=== PATIENT | female | born 1980 | race Caucasian/White ===

== ENCOUNTER 2018-01-28 11:57 | Inpatient (IN) | payer OTHER ==
[~2018-01-28] VITALS: Ht 185.4 cm; Wt 125.9 kg
--- NOTE | ~2018-01-28 | EKG ---
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
--- NOTE | ~2018-01-28 | CATHLAB ---
[facility] [place] [address] INVASIVE PROCEDURE REPORT Name: ROBYN PROCTOR Room #: 218-P ADM IN M.R.#: [id number] Admission: 01/28/18 Attend Phys: Chino Shah MD Discharge: Date of : 84 Date of Service: 01/28/18 1335 Report #: [id number] THIS REPORT FOR: //name// APPROVED REPORT Study performed: 01/28/2018 11:10:16 Patient Details Patient Status: ED Room #: The patient is a 37 year-old female Event Personnel Aidan Coates Doughnut Icer Machine, Ghada Velasquez RN RN, Viji Abdi Sandifer, David Monitor Procedures Performed Left Heart Cath w/or w/o Coronaries 2503157 C BMS Revasc AMI Total/Sub Single RCA 9815718 BMREVAMISG Indication STEMI (>6 hrs to = 12 hrs), Dyspnea, Chest pain Risk Factors HypercholesterolemiaPhysical Activity, Tobacco History () Procedure Narrative The Right Groin^ was infiltrated with 1% Lidocaine subcutaneous anesthesia. A PINNACLE 6FR Sheath #[id number] sheath was inserted into the RFA^. Coronary angiography was performed using coronary diagnostic catheters. The right coronary system was accessed and visualized with a 3DRC catheter. The left coronary system was accessed and visualized with a JL4 catheter. The left ventricle was accessed and visualized with a PIGTAIL catheter. Left ventricular/Aortic Valve gradient assessed via catheter pullback. Left ventriculogram was performed in 30 degree projection. Closure device was deployed with a 6 Fr MYNXGRIP 6/7F #[id number]. There was no hematoma. Intraoperative Conscious Sedation Sedation start time: 11.12 Case end Time: 12.04 Fentanyl 25 mcg Fluoro Time: 14.16 minutes Dose: DAP 10158 cGycm2 2430 mGy [facility] [place] [address] INVASIVE PROCEDURE REPORT Name: ROBYN PROCTOR Room #: 218-P [facility] IN M.R.#: [id number] Admission: 01/28/18 Attend Phys: Chino Shah MD Discharge: Date of : 84 Date of Service: 01/28/18 1335 Report #: [id number] Contrast Type and Amount: Visipaque 260 ml Coronary Angiography The patient's coronary anatomy is right dominant. Diagnostic Cath Left Main Patent vessel, with no flow-limiting lesions. LAD Moderate size caliber vessel, traveling down the anterior wall and wrapping around the apex. There is minimal plaquing in the proximal segment. Diagonal 1 Patent vessel, with no flow-limiting lesions. Circumflex Patent vessel, with no flow-limiting lesions. OM1 Patent vessel, with no flow-limiting lesions. OM2 Patent vessel, with no flow-limiting lesions. Right Coronary Dominant vessel with a total occlusion in the proximal segment. Left Ventriculography The left ventricle is normal in size with decreased contractility. The left ventricular ejection fraction is estimated to be 40%. Left ventricular wall motion abnormalities are present. There is hypokinesis of the inferior wall. Hemodynamics The aortic pressure is 109/69 mmHg with a mean of 85 mmHg. The left ventricular pressure is 111/21 mmHg with a mean of mmHg. The left ventricular end diastolic pressure is 26 mmHg. There was no gradient across the aortic valve upon pullback. Pullback from the left ventricle to the aorta revealed no gradient across the aortic valve. PCI Technique Lesion Anticoagulation was achieved with Angiomax. Percutaneous coronary intervention was performed on the proximal right coronary artery. The lesion stenosis prior to intervention was 100% with NISH 0 flow. A Voice123TA 6FR 3DRC #[id number] Guide Catheter was used to engage the ostium. A LUGE Interventional Guidewire was used to cross the lesion. BALLOON DILATION A Balloon catheter bettercodes.orgphora RX 3.0 x 15 #[id number] was inserted and inflated up to 10.00atm for 16seconds. Additional Inflation: 8.00atm for 14seconds. Additional Inflation: 10.00atm for 9seconds. Initially, we used a Pronto extraction catheter. I made several passes, but there was no change in the lesion. [facility] [address] [place] [address] INVASIVE PROCEDURE REPORT Name: PROCTORROBYNLULA BLANCOELLE Room #: 218-P [facility] IN M.R.#: [id number] Admission: 01/28/18 Attend Phys: Chino Shah MD Discharge: Date of : 84 Date of Service: 01/28/18 1335 Report #: [id number] STENT DEPLOYMENT A bare metal stent INTEGRITY RX 3.5 X 30 #[id number] was inserted and inflated up to 8.00atm for 28seconds. POST STENT DEPLOYMENT BALLOON DILATION A Balloon catheter Euphora NC RX 3.5 x 20 #[id number] was inserted and inflated up to 9.00atm for 15seconds. Additional Inflation: 18.00atm for 16seconds. Additional Inflation: 9.00atm for 15seconds. Final angiography reveals 0 % stenosis with NISH 3 flow. PCI Technique Lesion 2 A VISTA 6FR 3DRC #[id number] Guide Catheter was used to engage the ostium. Stent Deployment A bare metal stent INTEGRITY RX 3.5 X 26 #[id number] was inserted and inflated up to 9atm for 15seconds. Post Stent Deployment Balloon Dilation A Balloon catheter Euphora NC RX 3.5 x 20 #[id number] was inserted and inflated up to 16atm for 16seconds. Additional Inflation: 14atm for 12seconds. Conclusion 1. Successful placement of bare metal stents into the total occlusion in the RCA, with methodist of NISH-3 blood flow. 2. Moderate segmental LV dysfunction. 3. Recommend dual antiplatelet therapy and aggressive risk factor management. <ELECTRONICALLY SIGNED> By: Aidan Coates MD 01/28/18 1335 1335 1335 Aidan Coates MD /INF
--- NOTE | ~2018-01-28 | 2DMMODE ---
[facility] [place] [address] 2 D/M-MODE ECHOCARDIOGRAM Name: ROBYN PROCTOR Room #: 218-P ADM IN M.R.#: [id number] Admission: 01/28/18 Attend Phys: Chino Shah MD Discharge: Date of : 84 Date of Service: 01/30/18 1210 Report #: [id number] THIS REPORT FOR: //name// APPROVED REPORT Study performed: 01/30/2018 10:32:38 EXAM: Comprehensive 2D, Doppler, and color-flow Echocardiogram Patient Location: In-Patient Room #: 218 Status: routine BSA: 2.49 HR: 72 bpm BP: 97/52 mmHg Other Information Study Quality: Adequate Indications Chest Pain Hypertension/HDD CT, RCA stents x2 on 01/28/18 2D Dimensions RVDd: 30.13 mm IVSd: 8.17 (7-11mm) LVOT Diam: 21.69 (18-24mm) LVDd: 54.97 mm PWd: 9.99 (7-11mm) Ascending Ao: 27.06 (22-36mm) LVDs: 41.51 (25-40mm) Aortic Root: 27.50 mm IVC: 19.00 mm Volumes Left Atrial Volume (Systole) Single Plane 4CH: 22.34 mL Single Plane 2CH: 52.07 mL LA ESV Index: 16.00 mL/m2 Aortic Valve AoV Peak Jesse.: 1.34 m/s AO Peak Gr.: 7.23 mmHg LVOT Max P.78 mmHg LVOT Max V: 0.83 m/s GHAZALA Vmax: 2.29 cm2 Mitral Valve E/A Ratio: 1.5 MV Decel. Time: 236.92 ms [facility] [address] [place] [address] 2 D/M-MODE ECHOCARDIOGRAM Name: HANS PROCTORLULA BLANCOELLE Room #: 218-P [facility] IN ..#: [id number] Admission: 01/28/18 Attend Phys: Chino Shah MD Discharge: Date of : 84 Date of Service: 01/30/18 1210 Report #: [id number] MV E Max Jeses.: 0.80 m/s MV A Jesse.: 0.55 m/s MV PHT: 68.71 ms IVRT: 93.43 ms Pulmonary Valve PV Peak Jesse.: 0.70 m/s PV Peak Gr.: 1.95 mmHg Pulmonary Vein P Vein S: 0.47 m/s P Vein A: 0.18 m/s P Vein D: 0.51 m/s P Vein A Dur.: 124.6 msec P Vein S/D Ratio: 0.92 Tricuspid Valve TR Peak Jesse.: 2.34 m/s RAP Estimate: 5.00 mmHg TR Peak Gr.: 21.90 mmHg PA Pressure: 27.00 mmHg Left Ventricle Left ventricle is at the upper limits of normal. There is normal left ventricular wall thickness. Left ventricular systolic function is mildly decreased. LVEF is 40-45%. The left ventricular diastolic function is normal. Right Ventricle The right ventricle is normal size. Right ventricle is mildly hypokinetic. Atria The left atrium size is normal. The right atrium size is normal. Aortic Valve The aortic valve is normal in structure. No aortic regurgitation is present. There is no aortic valvular stenosis. Mitral Valve The mitral valve is normal in structure. Trace to mild mitral regurgitation. No evidence of mitral valve stenosis. Tricuspid Valve The tricuspid valve is normal in structure. Trace tricuspid regurgitation. PAP is estimated at 27 mmHg. Pulmonic Valve Pulmonic valve is not well visualized. Trace to mild pulmonic [facility] [address] [place] [address] 2 D/M-MODE ECHOCARDIOGRAM Name: ROBYN PROCTOR Room #: 218-P [facility] IN ..#: [id number] Admission: 01/28/18 Attend Phys: Chino Shah MD Discharge: Date of : 84 Date of Service: 01/30/18 1210 Report #: [id number] regurgitation. Great Vessels The aortic root is normal in size. IVC is normal in size and collapses >50% with inspiration. Pericardium Trace pericardial effusion. <Conclusion> Left ventricle is at the upper limits of normal. Left ventricular systolic function is mildly decreased. LVEF is 40-45%. The aortic valve is normal in structure. The mitral valve is normal in structure. Trace to mild mitral regurgitation. The tricuspid valve is normal in structure. Trace tricuspid regurgitation. PAP is estimated at 27 mmHg. Pulmonic valve is not well visualized. Trace to mild pulmonic regurgitation. Trace pericardial effusion. <ELECTRONICALLY SIGNED> By: Jonny Mcdonnell MD 01/30/181209 09 09 Jonny Mcdonnell MD /INF
--- NOTE | ~2018-01-28 | EKG ---
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 : 1980 Requested By: Aidan Coates Order Number: [id number] MD: John Sampson Measurements Intervals [place] Rate: 75 P: 47 GA: 130 QRS: 11 QRSD: 96 T: -19 QT: 426 QTc: 476 Interpretive Statements Sinus rhythm Inferior infarct, age indeterminate Compared to ECG 01/28/2018 15:48:09 Myocardial infarct finding now present Atrial premature complex(es) no longer present Possible ischemia no longer present Electronically Signed On 01-29-2018 13:32:45 CDT by John Sampson [email or web address] <ELECTRONICALLY SIGNED> By: John Sampson MD 01/29/18 1332 1029 1029 John Sampson MD /EPI
--- NOTE | ~2018-01-28 | HC ---
[facility] [place] [place] [address] CONSULTATION Name: ROBYN PROCTOR Room #: 218-P ADM IN M.R.#: [id number] Admission: 01/28/18 Attend Phys: Chino Shah MD Discharge: Date of : 84 Report #: [id number] THIS REPORT FOR: //name// CC: [facility] physician/PCP Chino Shah DATE OF SERVICE: 01/28/2018 INDICATION: Chest pain. HISTORY OF PRESENT ILLNESS: This is a 37-year-old female with a history of tobacco use, depression, arthritis, presenting with chest pain and syncope. The patient woke up around 2:30 this morning to let her cat out when she felt lightheadedness and proceeded to pass out. She regained consciousness right away, witnessed by family members. She then developed substernal chest pains, nonradiating with mild dyspnea. The pain seemed to lessen and she tried to go back to sleep. After 6 hours in duration, the pain seemed to increase in intensity with shortness of breath. At that time, she decided to go to the ER for an evaluation at [facility]. The patient was diagnosed with an acute inferior wall SD resulting in hypotension. She was treated with fluids. The initial troponin level was 3.755. ECG revealed ST elevation in the inferior leads. She was airlifted to [facility] for an emergent cardiac catheterization. PAST MEDICAL HISTORY: Denies diabetes, denies hypertension. ALLERGIES: PENICILLIN. SOCIAL HISTORY: One pack per day of tobacco use. FAMILY HISTORY: Negative for premature CAD. REVIEW OF SYSTEMS: A full 10-point review of systems performed. Only the pertinent positives and negatives are described in the HPI. PHYSICAL EXAMINATION: VITAL SIGNS: Blood pressure is 106/60, heart rate is 65 beats per minute. GENERAL APPEARANCE: An overweight female, in mild distress. HEENT: Normocephalic, atraumatic. Oral mucosa moist. NECK: Supple. LUNGS: Clear to auscultation. CARDIAC: Regular rate and rhythm, S1, S2 positive. ABDOMEN: Protuberant, soft, nontender. EXTREMITIES: No cyanosis, no edema. LABORATORY DATA: ECG reveals sinus rhythm with ST elevation of 1.5 mm in leads [facility] [address] [place] [address] CONSULTATION Name: ROBYN PROCTOR Room #: [facility] ADM IN .R.#: [id number] Admission: 01/28/18 Attend Phys: Chino Shah MD Discharge: Date of : 84 Report #: [id number] II, III, aVF with slight ST depression in the septal leads. ASSESSMENT AND PLAN: 1. Acute inferior wall myocardial infarction. The patient will be taken emergently to the [facility]. She will be started on aspirin and another antiplatelet therapy. 2. Syncope, attributed to hypotension from acute inferior wall myocardial infarction. We will manage with fluids for now. Avoid nitrates. 3. Hypercholesterolemia, start a statin medication. 4. Tobacco use, complete smoking cessation is recommended. 5. Left shoulder injury after her syncopal event. Will need to be evaluated. 6. Pneumonia, diagnosed with infiltrate on chest x-ray at [facility]. Will need to be evaluated. <ELECTRONICALLY SIGNED> By: Aidan Coates MD 01/30/18 0755 1212 Aidan Coates MD /nt
--- NOTE | ~2018-01-28 | HC ---
[facility] [place] [address] CONSULTATION Name: ROBYN PROCTOR Room #: 218-P [facility] IN M.R.#: [id number] Admission: 01/28/18 Attend Phys: Chino Shah MD Discharge: 01/30/18 Date of : 84 Report #: [id number] THIS REPORT FOR: //name// CC: [facility] physician/PCP Chino Shah DATE OF SERVICE: 01/30/2018 CHIEF COMPLAINT: Left shoulder and chest wall pain. HISTORY OF PRESENT ILLNESS: This 37-year-old female notes some left shoulder and chest wall discomfort, which began about 2 weeks ago when she was lifting heavy furniture at home. She did not have a fall or major significant injury, but did have shoulder and chest wall discomfort. She states she was seen in the Emergency Department on 2 occasions and given pain medications and an oral Medrol Dosepak. She then had a syncopal episode and may have fallen on the left side, although she is uncertain. She was brought to [facility] where cardiac evaluation revealed evidence of an ischemic event. She was treated with emergent placement of stents with good stabilization. She seems to be hemodynamically stable at this point and is alert and ambulatory. She does, however, complain of some ongoing discomfort. At this point, this is rather minimal at the left shoulder and more significant along the left chest wall where she notes intermittent muscular spasm. Objectively, the left shoulder demonstrates no bruising or swelling. There is normal alignment and full range of motion. There is no significant crepitus and minimal joint discomfort with active range of motion. She seems to have normal strength and stability at the shoulder. She does note some mild irritability, which extends up from the left chest wall toward the shoulder, but the shoulder itself does not seem to be markedly uncomfortable. She does complain of discomfort in the left chest wall extending from the anterior axillary line back to the periscapular region and down toward the left flank. There is no bruising or swelling. There is no localized point tenderness, but there is some generalized discomfort suggesting ongoing myositis in this region. X-rays of the left shoulder and the chest reveal no evidence of bony injury. At this point, I feel her shoulder and chest wall symptoms are most probably soft tissue and muscular in origin with simple muscular sprain or strain. We have discussed that she could have more significant shoulder problems, but current findings would not suggest evidence of rotator cuff injury nor labral damage nor biceps tendon injury. Her chest wall discomfort is clearly muscular and consistent with simple muscle sprain or strain with some associated spasm. I would favor only conservative management at this point, particularly given her recent cardiac event, therefore medical management for control of pain and muscle spasm would be appropriate. She can certainly use low dose narcotic pain medication or Flexeril for muscle spasm. I would encourage gentle gradually [address] [address] CONSULTATION Name: ROBYN PROCTOR Room #: 218-P [facility] IN M.R.#: [id number] Admission: 01/28/18 Attend Phys: Chino Shah MD Discharge: 01/30/18 Date of : 84 Report #: [id number] advancing activity. I will follow her while she remains in the hospital, but would not anticipate more aggressive measures. If her shoulder symptoms should persist, then followup as an outpatient would be appropriate as well. <ELECTRONICALLY SIGNED> By: Harsha Wood MD 01/31/18 1241 0745 1628 Harsha Wood MD /nt
[2018-01-28 12:45] VITALS: BP 121/78
[2018-01-28 19:29] VITALS: BP 137/89
[2018-01-28 23:48] VITALS: BP 112/71
[2018-01-29 05:48] LABS: HEMOGLOBIN 12.7 gm/dL (12.0-15.0); MCH 31.3 pg (26.0-34.0); MCHC 33.5 g/dL (28.0-37.0); MCV 93.6 fL (80.0-100.0); RBC 4.06 mil/uL (4.20-5.00); RDW 13.6 % (10.5-14.5); WBC 10.2 thou/uL (4.0-11.0)
[2018-01-29 06:06] LABS: CHOLESTEROL 114 mg/dL (<200); HDL CHOLESTEROL 19 mg/dL (>40); LDL CHOLESTEROL 67 mg/dL (<100); TRIGLYCERIDE 142 mg/dL (<150); VLDL 28 mg/dL (<40)
[2018-01-29 06:07] LABS: SERUM ASSESSMENT Clear
[2018-01-29 06:11] LABS: ALBUMIN 2.7 g/dL (3.4-5.0); CALCIUM 8.7 mg/dL (8.5-10.1); CREATININE 0.9 mg/dL (0.6-1.0); POTASSIUM 4.5 mmol/L (3.5-5.1); TOTAL BILIRUBIN 0.3 mg/dL (<0.1-1.0); TOTAL PROTEIN 6.3 g/dL (6.4-8.2)
[2018-01-29 06:13] LABS: TROPONIN-I 32.89 ng/mL (<0.06)
[2018-01-29 07:24] VITALS: BP 102/69
[2018-01-29 12:17] VITALS: BP 99/63
[2018-01-29 15:28] VITALS: BP 102/63
[2018-01-29 20:12] VITALS: BP 102/55
[2018-01-30 01:05] LABS: GLYCOHEMOGLOBIN (HGB A1C) 5.4 % (4.8-5.6)
[2018-01-30 03:32] VITALS: BP 100/58
[2018-01-30] MEDS ORDERED: ASPIRIN325 PO (08:21)
[2018-01-30] MEDS ORDERED: LIPITOR40 MG PO (08:21)
[2018-01-30] MEDS ORDERED: LISINOPRIL2.5 MG PO (08:21)
[2018-01-30] MEDS ORDERED: METOPROLOL SUCC25 M1 PO (08:21)
[2018-01-30] MEDS ORDERED: EFFIENT10 MG PO (08:21)
[2018-01-30] MEDS ORDERED: CEFUROXIME500 MG PO (08:24)
[2018-01-30 08:29] VITALS: BP 97/52
[2018-01-30 14:34] VITALS: BP 97/52
== END 2018-01-30 14:39 | disposition home or self-care (01) | DRG 248 ==
LOC: EROBS 11:57 → 2N 12:49 → ENTRNSPT 01-30 13:19 → EDTRNSPTSTS 01-30 13:44 → 2N 01-30 14:39
PROVIDERS: Hospitalist; Internal Medicine Cardiovascular Disease
DX: I21.19 ST elevation (STEMI) myocardial infarction involving other coronary artery of inferior wall (principal); J18.9 Pneumonia, unspecified organism; I47.1 Supraventricular tachycardia; F17.210 Nicotine dependence, cigarettes, uncomplicated; E78.00 Pure hypercholesterolemia, unspecified; S49.92XA Unspecified injury of left shoulder and upper arm, initial encounter; I95.9 Hypotension, unspecified; I25.10 Atherosclerotic heart disease of native coronary artery without angina pectoris; E66.9 Obesity, unspecified; I10 Essential (primary) hypertension; Z79.82 Long term (current) use of aspirin; Z79.899 Other long term (current) drug therapy; Z88.0 Allergy status to penicillin; Z90.49 Acquired absence of other specified parts of digestive tract; Z95.5 Presence of coronary angioplasty implant and graft; Z68.36 Body mass index [BMI] 36.0-36.9, adult; Z71.6 Tobacco abuse counseling; W18.39XA Other fall on same level, initial encounter; Y93.89 Activity, other specified; Y92.89 Other specified places as the place of occurrence of the external cause; Y99.8 Other external cause status
CPT/HCPCS: 10081

== ENCOUNTER → 2018-07-26 | Outpatient (CLI) | payer OTHER ==
[~2018-07-26] MED LIST: ASPIRIN325 PO; CEFUROXIME500 MG PO; EFFIENT10 MG PO; LIPITOR40 MG PO; LISINOPRIL2.5 MG PO; METOPROLOL SUCC25 M1 PO
== END ==
LOC: NUC 07:09
DX: I25.10 Atherosclerotic heart disease of native coronary artery without angina pectoris (principal); I10 Essential (primary) hypertension; E78.5 Hyperlipidemia, unspecified; I25.2 Old myocardial infarction; F17.200 Nicotine dependence, unspecified, uncomplicated; Z79.899 Other long term (current) drug therapy; Z88.0 Allergy status to penicillin; Z88.8 Allergy status to other drugs, medicaments and biological substances; Z82.49 Family history of ischemic heart disease and other diseases of the circulatory system

== ENCOUNTER → 2021-03-16 | Outpatient (CLI) | payer OTHER | LOC: SJCVCIMAG 14:38 | PROVIDERS: ATTEND Internal Medicine Cardiovascular Disease | DX: I25.10 Atherosclerotic heart disease of native coronary artery without angina pectoris (principal) ==